=== PATIENT | male | born 1955 | race Caucasian/White ===

== ENCOUNTER → 2021-03-30 07:07 | Outpatient (CLI) | payer MEDICARE, SELFPAY ==
--- NOTE | 2021-03-30 07:14 | MRI_ITS ---
STUDY: MRI BRAIN WITH AND WITHOUT CONTRAST (ATTENTION INTERNAL AUDITORY CANALS - I.A.C.''s) REASON FOR EXAM: Male, 65 years old. LT HEMIFACIAL SPASM, TUMOR VS VASCULAR LESION COMPRESSING CN VII TECHNIQUE: Standardized multiplanar fat and water weighted pulse sequences were obtained. dotarem 15ml IV was administered for the contrast portion of the examination. COMPARISON: None. FINDINGS: Normal bilateral temporal bones. Normal bilateral internal auditory canals. There is no demonstrated intracanalicular or cisternal vestibular schwannoma (acoustic neuroma). There is no enhancement of the bilateral VIIth or VIIIth cranial nerves. Normal bilateral cochlea, vestibules and semicircular canals. Normal size of the ventricles and extra-axial spaces for the patient''s age. There are a limited number of small white matter hyperintensities, distributed throughout the deep white matter tracts of the cerebral hemispheres, consistent with mild chronic white matter ischemic changes. Normal bilateral basal ganglia. Normal thalami. There is no enhancing intra-axial or extra-axial abnormality. There is no extra-axial fluid accumulation. Normal sella turcica, pituitary gland, infundibular stalk, optic chiasm and hypothalamus. Normal tectal plate and pineal gland. Normal midbrain, joseph and medulla. Normal cerebellum. Mild paranasal sinus disease. MRI/Brain W/WO Contrast IMPRESSION: No acute abnormality or masses. Mild chronic microvascular ischemic changes. Electronically Signed: Waleska Merino MD at 8:12 EDT Tel , Service support ,
== END ==
PROVIDERS: PCP Preventive Medicine Occupational Medicine; Referring Provider Ophthalmology; Visit Provider Ophthalmology
DX: G51.32 Clonic hemifacial spasm, left (principal)
CPT/HCPCS: 70553; A9575